=== PATIENT | female | born 1950 | race Caucasian/White ===

== ENCOUNTER 2024-01-18 15:25 | Inpatient (IN) | payer MEDICARE ==
[2024-01-18 16:55] VITALS: BMI 31.8
[2024-01-18] MEDS ORDERED: Bisacodyl 5 MG TAB PO PRN (18:24)
[2024-01-18] MEDS ORDERED: Bisacodyl 10 MG SUPP PR PRN (18:24)
[2024-01-18] MEDS: Simvastatin 5 MG TAB PO SCH (20:19)
[2024-01-18] MEDS: ALPRAZolam 0.5 MG TAB PO SCH (20:19)
[2024-01-18] MEDS: Famotidine 20 MG TAB PO SCH (20:20)
[2024-01-18] MEDS: HYDROcodone/Acetaminophen 5/325 mg Tablet PO PRN (20:20)
[2024-01-19] MEDS: DULoxetine 30 MG CAP PO SCH (09:38)
[2024-01-19] MEDS: Aspirin Chewable 81 MG TAB PO SCH (09:40)
[2024-01-19] MEDS: Amlodipine 5 MG TAB PO SCH (09:41)
[2024-01-19] MEDS: Enoxaparin 40 MG (0.4 mL) SYRINGE SC SCH (09:41)
[2024-01-19] MEDS: Loratadine 10 MG TAB PO SCH (09:41)
[2024-01-19] MEDS: Polyethylene Glycol 3350 17 GM Packet PO SCH (09:42)
[2024-01-19] MEDS: Senokot 8.6 MG TAB PO SCH (09:42)
[2024-01-19] MEDS: HYDROcodone/Acetaminophen 5/325 mg Tablet PO PRN (17:48)
[2024-01-19] MEDS: SALMETEROL INH SCH (21:01)
[2024-01-19] MEDS: FLUTICASONE PROPION INH SCH (21:01)
[2024-01-19] MEDS: Acetaminophen 325 MG TAB PO PRN (21:07)
[2024-01-20 05:22] LABS: Hematocrit 27.6 % (36.0-47.0); Hemoglobin 8.5 g/dL (12.0-16.0); Platelet Count 346 10x3/uL (130-400)
[2024-01-21] MEDS: Senokot S 8.6-50 MG TAB PO PRN (15:20)
[2024-01-23] MEDS: Ferrous Sulfate 325 MG TAB PO SCH (08:43)
[2024-01-23] MEDS: Mometasone/Formoterol 200/5 60 PUFF INH SCH (20:15)
[2024-01-24 05:33] LABS: #Basophils 0.1 thou/uL (0.0-0.2); #Eosinphils 0.2 thou/uL (0.0-0.7); #Lymphocytes 1.3 thou/uL (1.20-3.40); #Monocytes 0.6 thou/uL (0.11-0.59); #Neutrophils 7.2 thou/uL (1.40-6.50); %Basophils 0.8 % (0.0-1.0); %Eosinophils 2.5 % (0.0-10.0); %Lymphocytes 13.9 % (21.0-51.0); %Monocytes 6.4 % (0.0-10.0); %Neutrophils 76.4 % (42.0-75.0); Hematocrit 26.7 % (36.0-47.0); Hemoglobin 8.1 g/dL (12.0-16.0); Mean Corpuscular HGB CONC 30.4 g/dL (32.0-36.0); Mean Corpuscular Hemoglobin 29.5 pg (27.0-31.0); Mean Corpuscular Volume 97.2 fl (78.0-98.0); Mean Platelet Volume 5.9 fL (7.4-10.4); Platelet Count 561 10x3/uL (130-400); RBC Distribution Width 12.1 % (11.5-14.5); Red Blood Cell (RBC) Count 2.75 mill/uL (4.20-5.40); White Blood Cell (WBC) Count 9.4 10x3/uL (4.8-10.8)
[2024-01-26] MEDS: Acetaminophen 325 MG TAB PO PRN (16:39)
[2024-01-27] MEDS: Senokot 8.6 MG TAB PO SCH (10:18)
[2024-01-29 06:00] LABS: Hematocrit 28.9 % (36.0-47.0); Hemoglobin 8.6 g/dL (12.0-16.0); Platelet Count 573 10x3/uL (130-400)
[2024-02-01 15:22] LABS: Bacteria/HPF 4+ HPF (None Seen); RBC/HPF None Seen HPF (0-3); Squamous Epithelial 0-3 HPF (0-3); WBC/HPF 21-50 HPF (0-3)
[2024-02-01] MEDS: Fosfomycin 3 GM/Packet PO SCH (20:21)
[2024-02-04] MEDS: Senokot 8.6 MG TAB PO SCH (10:54)
[2024-02-05 05:15] LABS: Hematocrit 27.5 % (36.0-47.0); Hemoglobin 8.4 g/dL (12.0-16.0); Platelet Count 341 10x3/uL (130-400)
[2024-02-05] MEDS: Senokot 8.6 MG TAB PO SCH (09:24)
[2024-02-05] MEDS: ALPRAZolam 0.5 MG TAB PO SCH (09:25)
[2024-02-07] MEDS: Albuterol 200 PUFF (6.7GM INHALER) INH PRN (05:37)
[2024-02-07 10:55] VITALS: BMI 31.8
[2024-02-09] MEDS: predniSONE 20 MG TAB PO SCH (09:22)
[2024-02-09] MEDS: Benzonatate 100 MG CAP PO PRN (15:53)
[2024-02-10] MEDS: Fluticasone Propionate Nasal Spray 16 gm Bottle NASAL SCH (14:24)
[2024-02-11] MEDS: Fluticasone Propionate Nasal Spray 16 gm Bottle NASAL SCH (08:56)
[2024-02-11] MEDS: Benzocaine/Menthol 1 LOZ LOZ PO PRN (17:40)
[2024-02-13 05:51] LABS: #Basophils 0.1 thou/uL (0.0-0.2); #Lymphocytes 1.1 thou/uL (1.20-3.40); #Monocytes 0.8 thou/uL (0.11-0.59); #Neutrophils 3.7 thou/uL (1.40-6.50); %Basophils 1.2 % (0.0-1.0); %Eosinophils 0.2 % (0.0-10.0); %Lymphocytes 19.3 % (21.0-51.0); %Monocytes 14.6 % (0.0-10.0); %Neutrophils 64.8 % (42.0-75.0); Hematocrit 30.4 % (36.0-47.0); Hemoglobin 9.1 g/dL (12.0-16.0); Mean Corpuscular Hemoglobin 28.7 pg (27.0-31.0); Mean Corpuscular Volume 95.6 fl (78.0-98.0); Mean Platelet Volume 6.2 fL (7.4-10.4); Platelet Count 259 10x3/uL (130-400); RBC Distribution Width 12.5 % (11.5-14.5); Red Blood Cell (RBC) Count 3.19 mill/uL (4.20-5.40); White Blood Cell (WBC) Count 5.7 10x3/uL (4.8-10.8)
[2024-02-14 18:58] VITALS: TEMP 98.3
[2024-02-15 08:55] VITALS: BP 127/84
== END 2024-02-15 15:45 | disposition home health service (06) | DRG 561 ==
LOC: UNDOADMIN 15:25 → BURMED 15:25
PROVIDERS: ADMIT Family Medicine; ATTEND Family Medicine
DX: M97.01XD Periprosthetic fracture around internal prosthetic right hip joint, subsequent encounter (principal); E78.2 Mixed hyperlipidemia; I10 Essential (primary) hypertension; G47.33 Obstructive sleep apnea (adult) (pediatric); D64.9 Anemia, unspecified; J44.9 Chronic obstructive pulmonary disease, unspecified; Z87.891 Personal history of nicotine dependence
CPT/HCPCS: 36415; 71046; 81015; 82565; 85014; 85018; 85025; 85049; 87077; 87086; 87186; 94664; J1650; J7512